=== PATIENT | female | born 1990 | race African-American/Black ===

== ENCOUNTER 2021-03-14 05:00 | Inpatient (IN) | payer OTHER ==
[2021-03-14] MEDS ORDERED: LIDOCAINE HCL 1% PRESERVATIVE FREE - 30ML VIAL ONE (05:29)
[2021-03-14] MEDS ORDERED: OXYTOCIN 20 UNITS in 0.9% NS 20 UNIT/1,000 ML INFUS.BAG IV ONE ×2 (05:29→07:17)
[2021-03-14] MEDS ORDERED: BENZOCAINE 28 GM HEMORRHOIDAL OINTMENT TP PRN (06:03)
[2021-03-14] MEDS ORDERED: METHYLERGONOVINE MALEATE 0.2 MG/1 ML AMP IM PRN (06:03)
[2021-03-14] MEDS ORDERED: WITCH HAZEL 50% (TUCKS) 40 PAD/JAR PAD TP PRN (06:03)
[2021-03-14] MEDS ORDERED: BISACODYL 10 MG SUPP.RECT PR PRN (06:03)
[2021-03-14] MEDS ORDERED: ELECTROLYTE-148 SOLN 1,000 ML IV SCH (06:15)
[2021-03-14 06:39] LABS: BASO % 0.2 % (0-2.0); HEMATOCRIT 35.8 % (32.4-45.2); HEMOGLOBIN 12.3 GM/dL (10.7-15.3); LYMPH % 4.4 % (8-40); MCH 27.4 pg (25.7-33.7); MCHC 34.5 g/dl (32.0-36.0); MEAN CELL VOLUME 79.4 fl (80-96); MEAN PLT VOLUME 7.8 fl (7.5-11.1); MONO % 4.9 % (3.8-10.2); NEUT % 90.5 % (42.8-82.8); PLATELET COUNT 208 10^3/uL (134-434); RBC 4.51 M/mm3 (3.60-5.2); RDW 13.2 % (11.6-15.6); WHITE BLOOD COUNT 9.5 K/mm3 (4.0-10.0)
[2021-03-14 06:47] LABS: INR 0.95 (0.83-1.09); PROTHROMBIN TIME (PATIENT) 11.7 SEC (9.7-13.0)
[2021-03-14 06:49] LABS: ACTIVATED PTT 25.6 SECONDS (25.2-36.5)
[2021-03-14 07:00] LABS: BLOOD UREA NITROGEN 7.1 mg/dL (7-18); CALCIUM 8.3 mg/dL (8.5-10.1)
[2021-03-14] MEDS ORDERED: OXYTOCIN 20 UNITS in 0.9% NS 20 UNIT/1,000 ML INFUS.BAG IV SCH (07:00)
[2021-03-14 07:04] LABS: CREATININE 0.8 mg/dL (0.55-1.3)
[2021-03-14 07:12] LABS: CORD BASE EXCESS -5.3 mmol/L (0-2); CORD HCO3 20.7 mmHg (20-29); CORD PCO2 42.1 mmHg (30-78); CORD pH 7.31 (7.14-7.44)
[2021-03-14 07:17] LABS: CORD HCO3 21.9 mmHg (20-29); CORD PCO2 54.4 mmHg (30-78); CORD pH 7.222 (7.14-7.44)
[2021-03-14 07:29] VITALS: BMI 32.5
[2021-03-14] MEDS: IBUPROFEN 600 MG TABLET (FP) PO PRN ×3 (09:00→23:46)
[2021-03-14] MEDS: ACETAMINOPHEN 325 MG TABLET (FP) PO PRN ×3 (09:40→23:44)
[2021-03-14] MEDS: BENZOCAINE 20% 57 GM BOTTLE TP PRN ×2 (10:40→23:44)
[2021-03-15 09:11] LABS: BASO % 0.5 % (0-2.0); EOS % 1.2 % (0-4.5); HEMATOCRIT 30.5 % (32.4-45.2); HEMOGLOBIN 10.5 GM/dL (10.7-15.3); LYMPH % 21.2 % (8-40); MCH 27.6 pg (25.7-33.7); MCHC 34.5 g/dl (32.0-36.0); MEAN PLT VOLUME 7.8 fl (7.5-11.1); MONO % 8.3 % (3.8-10.2); NEUT % 68.8 % (42.8-82.8); PLATELET COUNT 213 10^3/uL (134-434); RBC 3.81 M/mm3 (3.60-5.2); RDW 13.1 % (11.6-15.6); WHITE BLOOD COUNT 8.3 K/mm3 (4.0-10.0)
[2021-03-15] MEDS: IBUPROFEN 600 MG TABLET (FP) PO PRN ×2 (09:44→22:20)
[2021-03-15] MEDS: ACETAMINOPHEN 325 MG TABLET (FP) PO PRN (22:21)
[2021-03-15] MEDS: BENZOCAINE 20% 57 GM BOTTLE TP PRN (22:24)
[2021-03-16] MEDS: IBUPROFEN 600 MG TABLET (FP) PO PRN (10:44)
[2021-03-16] MEDS: ACETAMINOPHEN 325 MG TABLET (FP) PO PRN (10:46)
[2021-03-16 16:28] VITALS: BP 126/80; PULSE 68; TEMP 98
== END 2021-03-16 19:50 | disposition home or self-care (01) | DRG 807 ==
LOC: JDEL 05:00 → JLDR 05:30 → J3W 09:00
PROVIDERS: ADMIT Obstetrics & Gynecology; ATTEND Obstetrics & Gynecology
PROC: 10E0XZZ Delivery of Products of Conception, External Approach (ICD-10-PCS; principal; 2021-03-14)
PROC: 0HQ9XZZ Repair Perineum Skin, External Approach (ICD-10-PCS; 2021-03-14)
PROC: 0W8NXZZ Division of Female Perineum, External Approach (ICD-10-PCS; 2021-03-14)
DX: O70.0 First degree perineal laceration during delivery (principal); Z37.0 Single live birth; Z3A.39 39 weeks gestation of pregnancy
CPT/HCPCS: 36415; 36600; 59409; 80048; 82803; 82962; 85025; 85610; 85730; 86780; 86850; 86900; 86901; C9803; U0003; U0005

== ENCOUNTER 2023-04-11 10:15 | Observation (INO) | payer OTHER ==
[2023-04-11 11:52] VITALS: RESP 18
[2023-04-11] MEDS ORDERED: LACTATED RINGERS SOLUTION 1,000 ML IV SCH (12:30)
[2023-04-11] MEDS ORDERED: BETAMET ACET/BETAMET NA PH 30 MG/5 ML VIAL ONE (12:31)
[2023-04-11 12:43] LABS: BASO % 0.7 % (0-2.0); EOS % 1.8 % (0-4.5); HEMATOCRIT 32.3 % (32.4-45.2); HEMOGLOBIN 10.7 GM/dL (10.7-15.3); LYMPH % 26.4 % (8-40); MCH 26.2 pg (25.7-33.7); MCHC 33.2 g/dl (32.0-36.0); MEAN PLT VOLUME 7.4 fl (7.5-11.1); MONO % 9.5 % (3.8-10.2); NEUT % 61.6 % (42.8-82.8); PLATELET COUNT 186 10^3/uL (134-434); RBC 4.09 M/mm3 (3.60-5.2); RDW 13.8 % (11.6-15.6); WHITE BLOOD COUNT 4.6 K/mm3 (4.0-10.0)
[2023-04-11] MEDS ORDERED: BETAMET ACET/BETAMET NA PH 30 MG/5 ML VIAL IM ONE (12:48)
[2023-04-11 12:55] LABS: INR 0.96 (0.83-1.09); PROTHROMBIN TIME (PATIENT) 11.1 SEC (9.7-13.0)
[2023-04-11 12:58] LABS: ACTIVATED PTT 25.9 SECONDS (25.2-36.5)
[2023-04-11 13:01] LABS: CALCIUM 8.3 mg/dL (8.5-10.1); POTASSIUM 4.1 mmol/L (3.5-5.1)
[2023-04-11 13:02] LABS: BLOOD UREA NITROGEN 5.6 mg/dL (7-18)
[2023-04-11 13:05] LABS: CREATININE 0.5 mg/dL (0.55-1.3)
[2023-04-11 13:56] LABS: HIV INTERPRETATION NEGATIVE (NEGATIVE)
[2023-04-11 13:57] VITALS: BMI 32.9
[2023-04-12 10:37] VITALS: BP 118/55; PULSE 94; TEMP 98.9
== END 2023-04-12 10:50 | disposition home or self-care (01) ==
LOC: JDEL 10:15 → JLDR 12:31 → J3W 19:55
PROVIDERS: ADMIT Specialist; ATTEND Specialist
PROC: 3E0233Z Introduction of Anti-inflammatory into Muscle, Percutaneous Approach (ICD-10-PCS; principal; 2023-04-11)
PROC: 3E0337Z Introduction of Electrolytic and Water Balance Substance into Peripheral Vein, Percutaneous Approach (ICD-10-PCS; 2023-04-11)
DX: O46.93 Antepartum hemorrhage, unspecified, third trimester (principal); Z3A.35 35 weeks gestation of pregnancy
CPT/HCPCS: 36415; 59025; 76819-TC; 80048; 85025; 85384; 85610; 85730; 86780; 86850; 86900; 86901; 87389; 96372; G0378

== ENCOUNTER 2023-05-08 05:00 | Inpatient (IN) | payer OTHER ==
[2023-05-08] MEDS ORDERED: OXYTOCIN 30 UNITS in 0.9% NS 30 UNIT/500 ML INFUS.BAG IVPB SCH (06:15)
[2023-05-08] MEDS ORDERED: OXYTOCIN 30 UNITS in 0.9% NS 30 UNIT/500 ML INFUS.BAG IVPB ONE (06:15)
[2023-05-08] MEDS ORDERED: ELECTROLYTE-148 SOLN 1,000 ML IV ONE (06:15)
[2023-05-08 07:02] LABS: EOS % 1.4 % (0-4.5); HEMATOCRIT 33.7 % (32.4-45.2); LYMPH % 31.8 % (8-40); MCHC 32.7 g/dl (32.0-36.0); MEAN CELL VOLUME 79.7 fl (80-96); MEAN PLT VOLUME 8.3 fl (7.5-11.1); MONO % 10.6 % (3.8-10.2); NEUT % 55.2 % (42.8-82.8); PLATELET COUNT 212 10^3/uL (134-434); RBC 4.22 M/mm3 (3.60-5.2); RDW 13.8 % (11.6-15.6); WHITE BLOOD COUNT 4.1 K/mm3 (4.0-10.0)
[2023-05-08] MEDS ORDERED: PROMETHAZINE HCL 25 MG/1 ML VIAL ONE (07:10)
[2023-05-08] MEDS ORDERED: BUTORPHANOL TARTRATE 1 MG/ML VIAL ONE (07:10)
[2023-05-08 07:16] LABS: POTASSIUM 3.7 mmol/L (3.5-5.1)
[2023-05-08 07:18] LABS: BLOOD UREA NITROGEN 6.7 mg/dL (7-18); CALCIUM 8.2 mg/dL (8.5-10.1)
[2023-05-08] MEDS ORDERED: PROMETHAZINE HCL 25 MG/1 ML VIAL IVPB ONE (07:19)
[2023-05-08] MEDS ORDERED: BUTORPHANOL TARTRATE 1 MG/ML VIAL IVPB ONE (07:19)
[2023-05-08 07:21] LABS: CREATININE 0.6 mg/dL (0.55-1.3); INR 0.97 (0.83-1.09); PROTHROMBIN TIME (PATIENT) 11.2 SEC (9.7-13.0)
[2023-05-08 07:24] LABS: ACTIVATED PTT 26.6 SECONDS (25.2-36.5)
[2023-05-08] MEDS ORDERED: NALOXONE HCL 0.4 MG/ML VIAL IVPUSH PRN (08:22)
[2023-05-08] MEDS ORDERED: FENTANYL/BUPIVACAINE/NS/PF - PCEA - 50 ML DISP.SYRIN EP ONE (08:23)
[2023-05-08] MEDS ORDERED: FENTANYL CITRATE/PF 50 MCG/ML VIAL ONE (08:28)
[2023-05-08] MEDS ORDERED: FENTANYL/BUPIVACAINE/NS/PF - PCEA - 50 ML DISP.SYRIN EP SCH (08:30)
[2023-05-08 09:11] VITALS: RESP 18
[2023-05-08] MEDS ORDERED: LIDOCAINE HCL 1% PRESERVATIVE FREE - 30ML VIAL ONE (10:16)
[2023-05-08] MEDS ORDERED: OXYTOCIN 20 UNITS in 0.9% NS 20 UNIT/1,000 ML INFUS.BAG IV ONE (10:16)
[2023-05-08] MEDS ORDERED: BENZOCAINE 28 GM HEMORRHOIDAL OINTMENT TP PRN (11:27)
[2023-05-08] MEDS ORDERED: BENZOCAINE 20% 57 GM BOTTLE TP PRN (11:27)
[2023-05-08] MEDS ORDERED: WITCH HAZEL 50% (TUCKS) 40 PAD/JAR PAD TP PRN (11:27)
[2023-05-08] MEDS ORDERED: ACETAMINOPHEN 325 MG TABLET (FP) PO PRN (11:27)
[2023-05-08] MEDS ORDERED: oxyCODONE HCL 5 MG TABLET PO PRN (11:27)
[2023-05-08] MEDS ORDERED: BISACODYL 10 MG SUPP.RECT RC PRN (11:27)
[2023-05-08] MEDS ORDERED: METHYLERGONOVINE MALEATE 0.2 MG/1 ML AMP IM PRN (11:27)
[2023-05-08] MEDS ORDERED: OXYTOCIN 20 UNITS in 0.9% NS 20 UNIT/1,000 ML INFUS.BAG IV SCH (11:30)
[2023-05-08] MEDS: IBUPROFEN 600 MG TABLET (FP) PO PRN (17:36)
[2023-05-09] MEDS: IBUPROFEN 600 MG TABLET (FP) PO PRN ×4 (01:19→22:15)
[2023-05-09 07:30] LABS: BASO % 0.3 % (0-2.0); EOS % 1.1 % (0-4.5); HEMATOCRIT 29.2 % (32.4-45.2); HEMOGLOBIN 9.8 GM/dL (10.7-15.3); LYMPH % 19.7 % (8-40); MCH 26.7 pg (25.7-33.7); MCHC 33.5 g/dl (32.0-36.0); MEAN CELL VOLUME 79.8 fl (80-96); MONO % 9.6 % (3.8-10.2); NEUT % 69.3 % (42.8-82.8); PLATELET COUNT 165 10^3/uL (134-434); RBC 3.66 M/mm3 (3.60-5.2); RDW 13.9 % (11.6-15.6); WHITE BLOOD COUNT 7.2 K/mm3 (4.0-10.0)
[2023-05-09] MEDS ORDERED: CLINDAMYCIN 900 MG PREMIX IVPB 900 MG/50 ML BAG IVPB SCH (12:00)
[2023-05-09] MEDS: GENTAMICIN IVPB SCH ×2 (14:06→22:53)
[2023-05-09] MEDS: WATER IVPB SCH ×2 (14:06→22:53)
[2023-05-09] MEDS: DEXTROSE 5% IVPB SCH ×2 (14:06→22:53)
[2023-05-09] MEDS: CLINDAMYCIN 900 MG PREMIX IVPB 900 MG/50 ML BAG IVPB SCH ×2 (14:18→22:15)
[2023-05-09] MEDS ORDERED: SENNOSIDES/DOCUSATE COMBO (SENNA PLUS) TABLET (UD) PO PRN (22:00)
[2023-05-10] MEDS: CLINDAMYCIN 900 MG PREMIX IVPB 900 MG/50 ML BAG IVPB SCH (06:03)
[2023-05-10] MEDS: WATER IVPB SCH ×2 (06:39→13:08)
[2023-05-10] MEDS: GENTAMICIN IVPB SCH ×2 (06:39→13:08)
[2023-05-10] MEDS: DEXTROSE 5% IVPB SCH ×2 (06:39→13:08)
[2023-05-10 10:32] VITALS: BP 133/78; PULSE 59; TEMP 98.5
[2023-05-10] MEDS: IBUPROFEN 600 MG TABLET (FP) PO PRN (13:08)
[2023-05-10 13:24] LABS: POC NITRAZINE POS
== END 2023-05-10 16:25 | disposition home or self-care (01) | DRG 807 ==
LOC: JLDR 05:00 → J3W 13:20
PROVIDERS: ADMIT Specialist; ATTEND Specialist
PROC: 10E0XZZ Delivery of Products of Conception, External Approach (ICD-10-PCS; principal; 2023-05-08)
PROC: 0HQ9XZZ Repair Perineum Skin, External Approach (ICD-10-PCS; 2023-05-08)
DX: O42.92 Full-term premature rupture of membranes, unspecified as to length of time between rupture and onset of labor (principal); O70.0 First degree perineal laceration during delivery; Z3A.39 39 weeks gestation of pregnancy; Z37.0 Single live birth
CPT/HCPCS: 36415; 80048; 83986-QW; 85025; 85610; 85730; 86780; 86850; 86900; 86901